=== PATIENT | female | born 1980 | race American Indian/Alaskan Native ===

== ENCOUNTER 2021-02-10 16:20 | Emergency (ER) | payer SELFPAY ==
[2021-02-10 16:36] VITALS: BP 157/85
[2021-02-10] MEDS ORDERED: ASPIRIN 81 MG TAB CHEW PO ONE (16:36)
--- NOTE | 2021-02-10 16:37 | Event Note ---
ED Screening Note Date of service: 02/10/21 Time: 16:36 ED Screening Note: 40-year-old female patient with history of alcohol use and marijuana use presents to the emergency department with complaints of chest pain, shortness of breath, palpitations, nausea, and vomiting starting today. Tachycardic in triage. General: Awake, appropriately interactive, no acute distress. Neck: Supple. Full range of motion intact. Cardiovascular: Normal peripheral perfusion. Pulmonary: No respiratory distress. Patient is speaking normally without use of accessory muscles. Skin: No apparent rashes or lesions. Neurological: No facial asymmetry. Speech is clear. Follows commands. Patient is alert and oriented. Musculoskeletal: Moves all four extremities spontaneously with normal range of motion. Psych: Cooperative. Appropriate mood and affect. This initial assessment/diagnostic orders/clinical plan/treatment(s) is/are subject to change based on patients health status, clinical progression and re- assessment by fellow clinical providers in the ED. Further treatment and workup at subsequent clinical providers discretion. Patient/guardian urged not to elope from the ED as their condition may be serious if not clinically assessed and managed.
[2021-02-10 17:05] LABS: Hematocrit 42.6 % (30.3-42.9); Hemoglobin 14.2 gm/dl (10.1-14.3); Mean Corpuscular HGB Conc 33 % (30-34); Mean Corpuscular Volume 99 fl (79-97); Platelet Count 228 K/mm3 (140-440); Red Blood Count 4.29 M/mm3 (3.65-5.03)
[2021-02-10 17:27] LABS: Alanine Aminotransferase 12 units/L (7-56); Albumin 4.3 g/dL (3.9-5); Blood Urea Nitrogen 12 mg/dL (7-17); Calcium 8.9 mg/dL (8.4-10.2); Hemolysis Index 10
[2021-02-10 17:29] LABS: BUN/Creatinine Ratio 24
[2021-02-10 18:38] LABS: Total Cells Counted 100
[2021-02-10 18:40] LABS: Large Platelets Rare; Ovalocytes Rare; Platelet Estimate Consistent w Auto
== END 2021-02-10 19:43 | disposition left against medical advice (07) ==
LOC: ED 16:20
DX: R06.02 Shortness of breath (principal); Z53.21 Procedure and treatment not carried out due to patient leaving prior to being seen by health care provider
CPT/HCPCS: 36415; 80053; 80320; 83735; 84443; 84484; 85007; 85025; 93005; G0480